=== PATIENT | female | born 1935 | race Caucasian/White ===

== ENCOUNTER 2017-03-28 11:47 | Inpatient (IN) | payer OTHER, BC ==
[~2017-03-28] VITALS: Ht 152.4 cm; Wt 51.0 kg
[~2017-03-28 11:47] MED LIST: ADULT LOW DOSE81 M1 PO; ASCORBIC ACID500 M3 PO; AUGMENTIN875 MG PO; BENADRYL25 MG PO; CENTRUM SILVER1 EAC3 PO; CIPRO500 MG PO; COVERA HS 240240 MG PO; EXCEDRIN MIGRA1 EAC3 PO; HYDROCODON-ACE1 EAC7 PO; LANSOPRAZOLE30 MG PO; LEVOXYL100 MCG PO; LEXAPRO10 MG PO; LIPITOR40 MG PO; LIPITOR80 MG PO; MUCINEX600 MG PO; MULTIVITAMIN; NASACORT AQ16.5 GM NS; NEXIUM40 MG PO; ONE DAILY1 EAC3 PO; PLAVIX75 MG PO; SYNTHROID112 MCG PO; SYNTHROID50 MCG PO; TYLENOL PO; TYLENOL WITH C1 EACH PO; ULTRAM ER300 MG PO; VERALAN; VERAPAMIL HCL240 MG PO; VITAMIN B COMP1 EAC1 PO; VITAMIN B12 100MCG PO; VITAMIN C100 MG PO; VITAMIN C500 M1 PO; VITAMIN D1000 UNIT PO; VITAMIN D2000 UNIT PO; VITAMIN D32000 UNI1 PO; ZESTORETIC 20-1 EAC1 PO
[2017-03-28 12:38] LABS: HEMATOCRIT 37.6 % (36.0-46.0); HEMOGLOBIN 11.5 G/DL (11.9-15.5); MCHC 30.6 G/DL (30.0-36.0); MCV 85.1 FL (83-99); PLATELET COUNT 228 K/uL (156-360); RBC DIS.WIDTH-CV 15.9 % (11.8-14.6); RBC DIS.WIDTH-SD 49.4 % (39-53); RED BLOOD COUNT 4.42 M/uL (3.80-5.20); WHITE BLOOD COUNT 3.8 K/uL (4.1-10.2)
[2017-03-28 12:48] LABS: CHLORIDE 109 mEq/L (99-109); POTASSIUM 3.5 mEq/L (3.7-5.4); SODIUM 138 mEq/L (136-147)
[2017-03-28 12:49] LABS: GLUCOSE 111 mg/dL (70-99)
[2017-03-28 12:53] LABS: CREATININE 0.8 mg/dL (0.6-1.3); GFR ESTIMATE (CALCULATED) > 59 mL/min/
[2017-03-28 12:54] LABS: UREA NITROGEN (BUN) 18 mg/dL (9-23)
[2017-03-28 12:55] LABS: TROP-I INTERPRETATION NEGATIVE; TROPONIN-I 0.12 ng/mL (0.0-0.30)
[2017-03-28 15:08] LABS: THYROTROPIN (TSH) 0.12 MIU/L (0.4-5.5)
[2017-03-28 17:25] LABS: TROP-I INTERPRETATION NEGATIVE; TROPONIN-I 0.11 ng/mL (0.0-0.30)
[2017-03-29 06:18] VITALS: BP 144/88
[2017-03-29 07:04] LABS: BASOPHIL (%) 0.6 % (0-1); EOSINOPHIL (%) 10.6 % (0-5); EOSINOPHIL COUNT 0.3 K/uL (0-0.3); HEMATOCRIT 34.5 % (36.0-46.0); HEMOGLOBIN 10.3 G/DL (11.9-15.5); LYMPHOCYTE (%) 38.9 % (15-42); LYMPHOCYTE COUNT 1.2 K/uL (1.0-2.8); MCHC 29.9 G/DL (30.0-36.0); MCV 83.7 FL (83-99); MONOCYTE (%) 11.9 % (3-12); MONOCYTE COUNT 0.4 K/uL (0-0.8); NEUTROPHIL COUNT 1.2 K/uL (1.8-6.4); PLATELET COUNT 179 K/uL (156-360); RBC DIS.WIDTH-CV 15.9 % (11.8-14.6); RBC DIS.WIDTH-SD 48.9 % (39-53); RED BLOOD COUNT 4.12 M/uL (3.80-5.20); WHITE BLOOD COUNT 3.1 K/uL (4.1-10.2)
[2017-03-29 07:25] LABS: TROP-I INTERPRETATION NEGATIVE; TROPONIN-I 0.13 ng/mL (0.0-0.30)
[2017-03-29 07:38] LABS: CHLORIDE 106 MEQ/L (99-109); CREATININE 0.6 MG/DL (0.6-1.3); GFR ESTIMATE (CALCULATED) > 59 mL/min/; GLUCOSE 96 mg/dL (70-99); POTASSIUM 3.9 MEQ/L (3.7-5.4); SODIUM 139 MEQ/L (136-147); UREA NITROGEN (BUN) 17 mg/dL (9-23)
[2017-03-29 08:00] VITALS: BP 115/78
[2017-03-29 11:29] VITALS: BP 123/74
[2017-03-29 15:48] VITALS: BP 136/67
[2017-03-29] MEDS ORDERED: XARELTO20 MG PO (18:40)
== END 2017-03-29 19:42 | disposition home or self-care (01) | DRG 310 ==
LOC: EME 11:47 → 4EAST 18:51 → EDOF 18:51 → ENRESERV 19:06 → 4EAST 03-29 06:00
PROVIDERS: Family Medicine; Physician Assistant Medical
DX: I48.91 Unspecified atrial fibrillation (principal); I44.1 Atrioventricular block, second degree; I08.0 Rheumatic disorders of both mitral and aortic valves; I10 Essential (primary) hypertension; E78.5 Hyperlipidemia, unspecified; I25.10 Atherosclerotic heart disease of native coronary artery without angina pectoris; K74.60 Unspecified cirrhosis of liver; E03.9 Hypothyroidism, unspecified; D64.9 Anemia, unspecified; E53.8 Deficiency of other specified B group vitamins; Z86.73 Personal history of transient ischemic attack (TIA), and cerebral infarction without residual deficits; Z87.11 Personal history of peptic ulcer disease; Z87.891 Personal history of nicotine dependence; Z95.1 Presence of aortocoronary bypass graft
CPT/HCPCS: 71046; 80048; 84439; 84443; 84484; 85025; 85027; 93005; 99281; 99284

== ENCOUNTER 2017-07-19 09:34 | Inpatient (IN) | payer OTHER, BC ==
[~2017-07-19] VITALS: Ht 149.9 cm; Wt 50.8 kg
[~2017-07-19 09:34] MED LIST changes: +XARELTO20 MG PO
[2017-07-19 10:35] LABS: HEMATOCRIT 29.3 % (36.0-46.0); MCH 26.3 PG (29.0-34.0); MCHC 30.7 G/DL (30.0-36.0); MCV 85.7 FL (83-99); PLATELET COUNT 308 K/uL (156-360); RBC DIS.WIDTH-CV 14.8 % (11.8-14.6); RBC DIS.WIDTH-SD 46.8 % (39-53); RED BLOOD COUNT 3.42 M/uL (3.80-5.20); WHITE BLOOD COUNT 8.8 K/uL (4.1-10.2)
[2017-07-19 10:46] LABS: CHLORIDE 110 mEq/L (99-109); POTASSIUM 3.1 mEq/L (3.7-5.4); SODIUM 141 mEq/L (136-147)
[2017-07-19 10:48] LABS: GLUCOSE 114 mg/dL (70-99)
[2017-07-19 10:50] LABS: INTER. NORMALIZED RATIO 1.7
[2017-07-19 10:52] LABS: CREATININE 0.6 mg/dL (0.6-1.3); GFR ESTIMATE (CALCULATED) > 59 mL/min/; PTT 32.9 SEC (25-37)
[2017-07-19 10:53] LABS: UREA NITROGEN (BUN) 17 mg/dL (9-23)
[2017-07-19 10:56] LABS: TROP-I INTERPRETATION NEGATIVE; TROPONIN-I 0.03 ng/mL (0.0-0.30)
[2017-07-19 12:05] LABS: APPEARANCE CLEAR ((CLEAR)); BILIRUBIN NEGATIVE; BLOOD SMALL; COLOR YELLOW ((YELLOW)); GLUCOSE (STRIP) NEGATIVE; KETONES 20; LEUKOCYTES NEGATIVE; NITRITE NEGATIVE; PROTEIN (STRIP) NEGATIVE; SPECIFIC GRAVITY 1.046 (1.000-1.030); UROBILINOGEN 0.2 MG/DL (0.2-1.0)
[2017-07-19 12:11] LABS: BACTERIA NONE SEEN /HPF; EPITHELIAL CELLS RARE /HPF; MUCUS TRACE /LPF; RED BLOOD CELLS 0-5 /HPF (0-5); UCUL ADDED? NO; WHITE BLOOD CELLS 0-5 /HPF (0-5)
[2017-07-19 13:15] LABS: HEMATOCRIT 27.6 % (36.0-46.0); HEMOGLOBIN 8.6 G/DL (11.9-15.5); MCV 85.7 FL (83-99)
[2017-07-19 15:13] LABS: THYROTROPIN (TSH) 0.04 MIU/L (0.4-5.5)
[2017-07-19 16:48] VITALS: BP 122/75
[2017-07-19 20:09] VITALS: BP 119/56
[2017-07-19 20:42] LABS: TROP-I INTERPRETATION NEGATIVE; TROPONIN-I 0.03 ng/mL (0.0-0.30)
[2017-07-19 23:30] VITALS: BP 95/51
[2017-07-20 03:32] VITALS: BP 124/56
[2017-07-20 05:52] LABS: HEMATOCRIT 26.2 % (36.0-46.0); HEMOGLOBIN 7.8 G/DL (11.9-15.5); MCH 26.2 PG (29.0-34.0); MCHC 29.8 G/DL (30.0-36.0); MCV 87.9 FL (83-99); PLATELET COUNT 281 K/uL (156-360); RBC DIS.WIDTH-CV 15.1 % (11.8-14.6); RBC DIS.WIDTH-SD 48.4 % (39-53); RED BLOOD COUNT 2.98 M/uL (3.80-5.20); WHITE BLOOD COUNT 9.3 K/uL (4.1-10.2)
[2017-07-20 06:08] LABS: TROP-I INTERPRETATION NEGATIVE; TROPONIN-I 0.04 ng/mL (0.0-0.30)
[2017-07-20 06:16] LABS: CHLORIDE 110 MEQ/L (99-109); CREATININE 0.6 MG/DL (0.6-1.3); GFR ESTIMATE (CALCULATED) > 59 mL/min/; GLUCOSE 125 mg/dL (70-99); SODIUM 139 MEQ/L (136-147); UREA NITROGEN (BUN) 17 mg/dL (9-23)
[2017-07-20 06:17] LABS: POTASSIUM 3.9 MEQ/L (3.7-5.4)
[2017-07-20 07:42] VITALS: BP 115/53
[2017-07-20 11:50] VITALS: BP 97/54
[2017-07-20 15:46] VITALS: BP 119/58
[2017-07-20 19:43] VITALS: BP 125/66
[2017-07-21 00:13] VITALS: BP 118/62
[2017-07-21 06:01] LABS: HEMATOCRIT 26.7 % (36.0-46.0); HEMOGLOBIN 7.8 G/DL (11.9-15.5); MCH 25.7 PG (29.0-34.0); MCHC 29.2 G/DL (30.0-36.0); MCV 88.1 FL (83-99); PLATELET COUNT 299 K/uL (156-360); RBC DIS.WIDTH-CV 14.9 % (11.8-14.6); RBC DIS.WIDTH-SD 48.2 % (39-53); RED BLOOD COUNT 3.03 M/uL (3.80-5.20); WHITE BLOOD COUNT 7.6 K/uL (4.1-10.2)
[2017-07-21 06:18] LABS: CHLORIDE 108 MEQ/L (99-109); CREATININE 0.6 MG/DL (0.6-1.3); GFR ESTIMATE (CALCULATED) > 59 mL/min/; GLUCOSE 97 mg/dL (70-99); POTASSIUM 3.8 MEQ/L (3.7-5.4); SODIUM 138 MEQ/L (136-147); UREA NITROGEN (BUN) 18 mg/dL (9-23)
[2017-07-21 08:43] VITALS: BP 128/58
[2017-07-21 12:13] VITALS: BP 99/50
[2017-07-21 15:58] VITALS: BP 114/52
[2017-07-21 19:05] VITALS: BP 114/56
[2017-07-21 23:19] VITALS: BP 114/53
[2017-07-22 03:24] VITALS: BP 111/55
[2017-07-22 05:35] LABS: HEMATOCRIT 26.1 % (36.0-46.0); HEMOGLOBIN 7.7 G/DL (11.9-15.5); MCH 25.8 PG (29.0-34.0); MCHC 29.5 G/DL (30.0-36.0); MCV 87.6 FL (83-99); PLATELET COUNT 267 K/uL (156-360); RBC DIS.WIDTH-CV 14.7 % (11.8-14.6); RED BLOOD COUNT 2.98 M/uL (3.80-5.20); WHITE BLOOD COUNT 7.3 K/uL (4.1-10.2)
[2017-07-22 06:00] LABS: CHLORIDE 109 MEQ/L (99-109); CREATININE 0.6 MG/DL (0.6-1.3); GFR ESTIMATE (CALCULATED) > 59 mL/min/; GLUCOSE 85 mg/dL (70-99); POTASSIUM 3.8 MEQ/L (3.7-5.4); SODIUM 139 MEQ/L (136-147); UREA NITROGEN (BUN) 18 mg/dL (9-23)
[2017-07-22 07:15] VITALS: BP 110/52
[2017-07-22 11:53] VITALS: BP 101/53
[2017-07-22 15:25] VITALS: BP 108/59
[2017-07-22 18:00] LABS: BASOPHIL (%) 0.6 % (0-1); EOSINOPHIL (%) 5.9 % (0-5); EOSINOPHIL COUNT 0.4 K/uL (0-0.3); HEMATOCRIT 27.5 % (36.0-46.0); IMMATURE GRANULOCYTE (%) 0.3 % (0.0-0.7); LYMPHOCYTE (%) 30.6 % (15-42); LYMPHOCYTE COUNT 2.1 K/uL (1.0-2.8); MCH 25.6 PG (29.0-34.0); MCHC 29.1 G/DL (30.0-36.0); MCV 87.9 FL (83-99); MONOCYTE (%) 10.2 % (3-12); MONOCYTE COUNT 0.7 K/uL (0-0.8); NEUTROPHIL (%) 52.4 % (45-76); NEUTROPHIL COUNT 3.6 K/uL (1.8-6.4); PLATELET COUNT 303 K/uL (156-360); RBC DIS.WIDTH-SD 48.4 % (39-53); RED BLOOD COUNT 3.13 M/uL (3.80-5.20); WHITE BLOOD COUNT 6.8 K/uL (4.1-10.2)
[2017-07-22 20:22] VITALS: BP 110/64
[2017-07-23] VITALS (10 sets, daily range): BP systolic 107–148; BP diastolic 58–75
[2017-07-23 06:00] LABS: HEMATOCRIT 25.8 % (36.0-46.0); HEMOGLOBIN 7.6 G/DL (11.9-15.5); MCH 25.7 PG (29.0-34.0); MCHC 29.5 G/DL (30.0-36.0); MCV 87.2 FL (83-99); PLATELET COUNT 251 K/uL (156-360); RBC DIS.WIDTH-CV 14.7 % (11.8-14.6); RED BLOOD COUNT 2.96 M/uL (3.80-5.20); WHITE BLOOD COUNT 5.9 K/uL (4.1-10.2)
[2017-07-23 06:20] LABS: CHLORIDE 109 MEQ/L (99-109); CREATININE 0.7 MG/DL (0.6-1.3); GFR ESTIMATE (CALCULATED) > 59 mL/min/; GLUCOSE 87 mg/dL (70-99); POTASSIUM 3.9 MEQ/L (3.7-5.4); SODIUM 140 MEQ/L (136-147); UREA NITROGEN (BUN) 17 mg/dL (9-23)
[2017-07-24 03:46] VITALS: BP 134/73
[2017-07-24 06:46] LABS: BASOPHIL (%) 0.9 % (0-1); BASOPHIL COUNT 0.1 K/uL (0-0.1); EOSINOPHIL (%) 12.4 % (0-5); EOSINOPHIL COUNT 0.7 K/uL (0-0.3); HEMATOCRIT 29.7 % (36.0-46.0); HEMOGLOBIN 9.2 G/DL (11.9-15.5); IMMATURE GRANULOCYTE (%) 0.2 % (0.0-0.7); LYMPHOCYTE (%) 25.8 % (15-42); LYMPHOCYTE COUNT 1.4 K/uL (1.0-2.8); MCH 26.7 PG (29.0-34.0); MCV 86.1 FL (83-99); MONOCYTE (%) 12.7 % (3-12); MONOCYTE COUNT 0.7 K/uL (0-0.8); NEUTROPHIL COUNT 2.7 K/uL (1.8-6.4); PLATELET COUNT 234 K/uL (156-360); RBC DIS.WIDTH-CV 14.6 % (11.8-14.6); RED BLOOD COUNT 3.45 M/uL (3.80-5.20); WHITE BLOOD COUNT 5.6 K/uL (4.1-10.2)
[2017-07-24 08:25] VITALS: BP 150/80
[2017-07-24 11:11] VITALS: BP 103/63
[2017-07-24] MEDS ORDERED: LOPRESSOR25 MG PO (11:53)
[2017-07-24] MEDS ORDERED: PANTOPRAZOLE SO40 MG PO (11:54)
[2017-07-24] MEDS ORDERED: FEOSOL325 MG PO (12:29)
[2017-07-24] MEDS ORDERED: LEVOTHYROXINE100 MCG PO (12:30)
== END 2017-07-24 17:41 | DRG 378 ==
LOC: EME 09:34 → EDOF 14:04 → 2EAST 14:04 → ENRESERV 14:09 → 2EAST 16:39
PROVIDERS: Family Medicine; Internal Medicine Gastroenterology; Nurse Practitioner Family
PROC: 0DB68ZX Excision of Stomach, Via Natural or Artificial Opening Endoscopic, Diagnostic (ICD-10-PCS; principal; 2017-07-22)
PROC: 30233N1 Transfusion of Nonautologous Red Blood Cells into Peripheral Vein, Percutaneous Approach (ICD-10-PCS; 2017-07-23)
DX: K25.4 Chronic or unspecified gastric ulcer with hemorrhage (principal); S22.32XA Fracture of one rib, left side, initial encounter for closed fracture; D62 Acute posthemorrhagic anemia; S22.42XA Multiple fractures of ribs, left side, initial encounter for closed fracture; K44.9 Diaphragmatic hernia without obstruction or gangrene; K29.70 Gastritis, unspecified, without bleeding; E86.0 Dehydration; S20.212A Contusion of left front wall of thorax, initial encounter; W18.30XA Fall on same level, unspecified, initial encounter; I25.10 Atherosclerotic heart disease of native coronary artery without angina pectoris; G47.00 Insomnia, unspecified; I71.4 Abdominal aortic aneurysm, without rupture; I10 Essential (primary) hypertension; E87.6 Hypokalemia; E03.9 Hypothyroidism, unspecified; I48.0 Paroxysmal atrial fibrillation; K74.69 Other cirrhosis of liver; E78.5 Hyperlipidemia, unspecified; D50.0 Iron deficiency anemia secondary to blood loss (chronic); Z79.82 Long term (current) use of aspirin; E53.8 Deficiency of other specified B group vitamins; F32.9 Major depressive disorder, single episode, unspecified; Y93.9 Activity, unspecified; Y92.9 Unspecified place or not applicable; Z87.891 Personal history of nicotine dependence; Z79.01 Long term (current) use of anticoagulants; Z95.1 Presence of aortocoronary bypass graft; Z86.73 Personal history of transient ischemic attack (TIA), and cerebral infarction without residual deficits; Z87.11 Personal history of peptic ulcer disease; Z79.899 Other long term (current) drug therapy
CPT/HCPCS: 71100; 71275; 74174; 80048; 81003; 82948; 84439; 84443; 84484; 85014; 85018; 85025; 85027; 85610; 85730; 86850; 86900; 86901; 86920; 87641; 88305; 88342 TC; 93005; 99281; 99285; J2405; J7120; P9016; S0028